=== PATIENT | female | born 1990 | race African-American/Black ===

== ENCOUNTER 2023-12-23 03:59 | Inpatient (IN) | payer MEDICAID, OTHER ==
[~2023-12-23] VITALS: Ht 177.8 cm; Wt 64.9 kg
[~2023-12-23 03:59] MED LIST: LEVO500T2 PO
[2023-12-23 07:40] LABS: BASOPHILS % 0.5 % (0.0-2.0); EOSINOPHILS % 0.1 % (0.0-5.0); HEMATOCRIT. 34.1 % (36.0-48.0); HEMOGLOBIN. 11.4 g/dL (12.0-16.0); LYMPHOCYTES % 14.9 % (20.0-50.0); MEAN CORPUSCULAR HEMOGLOBIN 30.9 pg (28.0-32.0); MEAN CORPUSCULAR HGB CONC 33.5 g/dL (31.0-37.0); MEAN CORPUSCULAR VOLUME 92.1 fL (81.0-99.0); MEAN PLATELET VOLUME 8.7 fl (7.4-10.4); MONOCYTES % 10.1 % (2.0-8.0); NEUTROPHILS % 74.4 % (40.0-76.0); PLATELET 284 x1000/uL (130-400); RED CELL DISTRIBUTION WIDTH 14.2 % (11.6-14.6); WHITE BLOOD COUNT 12.2 x1000/uL (4.5-11.0)
[2023-12-23 07:49] LABS: CARBON DIOXIDE 24 mEq/L (21-32); CHLORIDE 105 mEq/L (98-107); POTASSIUM 3.5 mEq/L (3.5-5.1); SODIUM 135 mEq/L (136-145)
[2023-12-23 07:50] LABS: CALCIUM 9.6 mg/dL (8.7-10.4)
[2023-12-23 07:55] LABS: CREATININE 0.7 mg/dL (0.6-1.0); GLUCOSE 78 mg/dL (70-105); UREA NITROGEN BLOOD 9 mg/dL (9-23)
[2023-12-23 07:57] LABS: ALANINE AMINOTRANSFERASE 10 IU/L (10-49); ALBUMIN 4.2 g/dL (3.2-4.8); ASPARTATE AMINOTRANSFERASE 28 IU/L (<34); BILIRUBIN DIRECT 0.3 mg/dL (<=3.0); BILIRUBIN TOTAL 0.8 mg/dL (0.1-1.0); HCG SCREEN NEGATIVE; PROTEIN TOTAL 6.9 g/dL (6.0-8.3)
[2023-12-23] MEDS: ONDANSETRON HCL 4MG/2ML INJ IV STA (08:05)
[2023-12-23] MEDS: MORPHINE SULFATE 4 MG/ML INJ (FOR IV/IM USE) IV STA (08:05)
[2023-12-23] MEDS: SODIUM CHLORIDE 0.9% 1,000 ML IV ONE (08:05)
[2023-12-23 08:08] LABS: PROTHROMBIN TIME 10.9 sec (9.6-11.0)
[2023-12-23 08:51] LABS: ETHANOL BLOOD < 10 mg/dL (<10); TROPONIN I HIGH SENSITIVITY < 4 ng/L (3.0-34)
[2023-12-23 09:40] VITALS: O2SAT 100
[2023-12-23] MEDS: MIDAZOLAM HCL 2 MG/2 ML VIAL IV ONE (09:40)
[2023-12-23] MEDS: LIDOCAINE HCL 1% 20ML VIAL (Pyxis) INJ INFIL ONE (10:10)
[2023-12-23] MEDS: FENTANYL CITRATE/PF 50MCG/ML 2ML VIAL IV ONE ×2 (10:26→11:30)
[2023-12-23] MEDS: KETOROLAC 30MG/ML VIAL IV ONE (13:55)
[2023-12-23] MEDS: MORPHINE SULFATE 4 MG/ML INJ (FOR IV/IM USE) IV ONE (13:55)
[2023-12-23] MEDS: ACETAMINOPHEN 1000MG/100ML 100 ML IV ONE (16:30)
[2023-12-23 20:00] VITALS: BP 133/59; PULSE 84; RESP 19; TEMP 98.6
[2023-12-23] MEDS ORDERED: NALOXONE HCL 0.4MG/ML VIAL IV PRN (22:00)
[2023-12-23] MEDS: HYDROCODONE/ACETAMINOPHEN 10/325MG TABLET PO PRN (23:11)
[2023-12-23 23:12] VITALS: BP 133/62; PULSE 84; RESP 19; TEMP 98.6
[2023-12-24] VITALS (7 sets, daily range): BP systolic 112–132; BP diastolic 62–79; PULSE 20–94; RESP 17–20; TEMP 97.5–98.1
[2023-12-24] MEDS ORDERED: DOCUSATE SODIUM 100MG CAPSULE PO PRN (08:30)
[2023-12-24] MEDS ORDERED: ACETAMINOPHEN 325MG TABLET PO PRN ×2 (08:30)
[2023-12-24] MEDS ORDERED: ONDANSETRON HCL 4MG/2ML INJ IV PRN (08:30)
[2023-12-24] MEDS ORDERED: CLONIDINE 0.1MG TABLET PO PRN (08:30)
[2023-12-24] MEDS ORDERED: IPRATROPIUM/ALBUTEROL 0.5-3(2.5)MG/3ML NEB HHN PRN (08:30)
[2023-12-24] MEDS: FAMOTIDINE 20MG TABLET PO SCH (09:24)
[2023-12-24 11:02] LABS: BG BASE EXCESS 0.8 mmol/L (-2.0-2.0); BG CARBOXYHEMOGLOBIN 0.5 % (0.5-1.5); BG DEOXYHEMOGLOBIN 1.8 % (0.0-5.0); BG FRACTION INSPIRED OXYGEN 21; BG HCO3 ACT 23.9 mmol/L (22.0-26.0); BG METHEMOGLOBIN 0.2 % (0.0-1.5); BG OXYGEN SATURATION 98.2 % (92.0-98.5); BG OXYHEMOGLOBIN 97.5 % (94.0-97.0); BG PCO2 33.4 mmHg (35.0-45.0); BG PH 7.473 (7.350-7.450); BG PO2 99.3 mmHg (75.0-100.0); BG SAMPLE SITE RIGHT RADIAL; BG TOTAL HEMOGLOBIN 12.1 g/dL (12.0-18.0); BG VENT MODE ROOM AIR
[2023-12-24 13:19] LABS: BASOPHILS % 0.4 % (0.0-2.0); EOSINOPHILS % 1.1 % (0.0-5.0); HEMATOCRIT. 33.8 % (36.0-48.0); HEMOGLOBIN. 11.6 g/dL (12.0-16.0); MEAN CORPUSCULAR HEMOGLOBIN 31.6 pg (28.0-32.0); MEAN CORPUSCULAR HGB CONC 34.3 g/dL (31.0-37.0); MEAN CORPUSCULAR VOLUME 92.2 fL (81.0-99.0); MEAN PLATELET VOLUME 8.8 fl (7.4-10.4); MONOCYTES % 9.7 % (2.0-8.0); NEUTROPHILS % 69.8 % (40.0-76.0); PLATELET 251 x1000/uL (130-400); RED BLOOD CELL COUNT 3.67 mill/uL (4.2-5.4); WHITE BLOOD COUNT 7.9 x1000/uL (4.5-11.0)
[2023-12-24 13:47] LABS: CHLORIDE 104 mEq/L (98-107); POTASSIUM 4.1 mEq/L (3.5-5.1); SODIUM 134 mEq/L (136-145)
[2023-12-24 13:48] LABS: CARBON DIOXIDE 26 mEq/L (21-32)
[2023-12-24 13:49] LABS: CALCIUM 9.7 mg/dL (8.7-10.4)
[2023-12-24 13:53] LABS: CREATININE 0.7 mg/dL (0.6-1.0); GLUCOSE 102 mg/dL (70-105); UREA NITROGEN BLOOD 8 mg/dL (9-23)
[2023-12-24] MEDS: PIPERACILLIN/TAZO 3.375G/50ML 50 ML IV SCH (14:18)
[2023-12-24 18:52] LABS: *AMPHETAMINES SCREEN URINE NEGATIVE (NEGATIVE); *BARBITURATES SCREEN URINE NEGATIVE (NEGATIVE); *BENZODIAZEPINES SCREEN URINE PRESUMPTIVE POSITIVE (NEGATIVE); *COCAINE SCREEN URINE NEGATIVE (NEGATIVE); METHADONE URINE SCREEN NEGATIVE (NEGATIVE); OPIATES URINE SCREEN PRESUMPTIVE POSITIVE (NEGATIVE)
[2023-12-24 18:53] LABS: CANNABINOID URINE SCREEN PRESUMPTIVE POSITIVE (NEGATIVE); ECSTASY MDMA SCREEN URINE NEGATIVE (NEGATIVE); PHENCYCLIDINE URINE SCREEN NEGATIVE (NEGATIVE)
[2023-12-24] MEDS ORDERED: CLOTRIMAZOLE 1% CREAM 15GM TOP ONE (20:30)
[2023-12-24] MEDS ORDERED: ALBUTEROL 6.7GM HFA INHALER ORI PRN (22:45)
[2023-12-24] MEDS: CLOTRIMAZOLE 1% CREAM 15GM TOP SCH (22:51)
[2023-12-25] VITALS: BP 111/60; PULSE 73; RESP 20; TEMP 97.8
[2023-12-25 02:10] LABS: CLARITY URINE CLEAR (CLEAR); COLOR URINE YELLOW (YELLOW); GLUCOSE URINE NEGATIVE (NEGATIVE); KETONES URINE NEGATIVE (NEGATIVE); LEUKOCYTE ESTERASE URINE NEGATIVE (NEGATIVE); NITRITE URINE NEGATIVE (NEGATIVE); OCCULT BLOOD URINE NEGATIVE (NEGATIVE); PROTEIN URINE NEGATIVE (NEGATIVE); SPECIFIC GRAVITY URINE 1.011 (1.005-1.030)
[2023-12-25 04:00] VITALS: BP 110/68; PULSE 69; RESP 20; TEMP 96.8
[2023-12-25 07:45] LABS: CHLORIDE 102 mEq/L (98-107); POTASSIUM 4.2 mEq/L (3.5-5.1); SODIUM 136 mEq/L (136-145)
[2023-12-25 07:46] LABS: CALCIUM 10.1 mg/dL (8.7-10.4); CARBON DIOXIDE 28 mEq/L (21-32)
[2023-12-25 07:51] LABS: CREATININE 0.8 mg/dL (0.6-1.0); GLUCOSE 87 mg/dL (70-105); UREA NITROGEN BLOOD 7 mg/dL (9-23)
[2023-12-25 08:01] LABS: BASOPHILS % 0.7 % (0.0-2.0); EOSINOPHILS % 2.4 % (0.0-5.0); HEMATOCRIT. 36.1 % (36.0-48.0); HEMOGLOBIN. 12.2 g/dL (12.0-16.0); LYMPHOCYTES % 19.4 % (20.0-50.0); MEAN CORPUSCULAR HEMOGLOBIN 31.4 pg (28.0-32.0); MEAN CORPUSCULAR HGB CONC 33.7 g/dL (31.0-37.0); MEAN CORPUSCULAR VOLUME 93.2 fL (81.0-99.0); MEAN PLATELET VOLUME 9.1 fl (7.4-10.4); MONOCYTES % 10.6 % (2.0-8.0); NEUTROPHILS % 66.9 % (40.0-76.0); PLATELET 259 x1000/uL (130-400); RED BLOOD CELL COUNT 3.87 mill/uL (4.2-5.4); RED CELL DISTRIBUTION WIDTH 14.1 % (11.6-14.6); WHITE BLOOD COUNT 8.2 x1000/uL (4.5-11.0)
[2023-12-25 08:31] VITALS: BP 116/52; PULSE 81; RESP 16; TEMP 97
[2023-12-25 12:00] VITALS: BP 112/60; PULSE 76; RESP 16; TEMP 97.5
[2023-12-25 16:00] VITALS: BP 135/67; PULSE 94; RESP 18; TEMP 97.9
[2023-12-25 20:00] VITALS: BP 128/52; PULSE 99; RESP 18; TEMP 98.7
[2023-12-26] VITALS: BP 143/68; PULSE 91; RESP 18; TEMP 98.4
[2023-12-26] MEDS: HYDROCODONE/ACETAMINOPHEN 10/325MG TABLET PO PRN (00:49)
[2023-12-26 04:00] VITALS: BP 138/61; PULSE 88; RESP 20; TEMP 97.8
[2023-12-26 08:00] VITALS: BP 92/68; PULSE 80; RESP 18; TEMP 98
[2023-12-26 12:00] VITALS: BP 122/80; PULSE 87; RESP 18; TEMP 98
[2023-12-26] MEDS: KETOROLAC 30MG/ML VIAL IV PRN (13:38)
[2023-12-26 16:00] VITALS: BP 102/65; PULSE 80; RESP 18; TEMP 98
[2023-12-26 20:00] VITALS: BP 118/67; PULSE 87; RESP 18; TEMP 98.2
[2023-12-27] VITALS: BP 117/69; PULSE 75; RESP 17; TEMP 97.1
[2023-12-27 04:00] VITALS: BP 99/55; PULSE 86; RESP 17; TEMP 98.1
[2023-12-27 08:00] VITALS: BP 109/65; PULSE 82; RESP 18; TEMP 97.7
[2023-12-27 12:00] VITALS: BP 120/60; PULSE 86; RESP 18; TEMP 97.7
[2023-12-27 16:00] VITALS: BP 104/57; PULSE 79; RESP 18; TEMP 97.8
[2023-12-27 20:00] VITALS: BP 111/63; PULSE 90; RESP 16; TEMP 97.5
[2023-12-28] VITALS: BP 100/57; PULSE 83; RESP 18; TEMP 96.4
[2023-12-28 04:00] VITALS: BP 100/61; PULSE 74; RESP 18; TEMP 97.5
[2023-12-28 08:00] VITALS: BP 104/59; PULSE 78; RESP 18; TEMP 97.6
[2023-12-28 09:56] LABS: HEMATOCRIT. 37.4 % (36.0-48.0); HEMOGLOBIN. 12.6 g/dL (12.0-16.0); LYMPHOCYTES % 21.4 % (20.0-50.0); MEAN CORPUSCULAR HEMOGLOBIN 31.6 pg (28.0-32.0); MEAN CORPUSCULAR HGB CONC 33.8 g/dL (31.0-37.0); MEAN CORPUSCULAR VOLUME 93.3 fL (81.0-99.0); MEAN PLATELET VOLUME 8.4 fl (7.4-10.4); MONOCYTES % 12.5 % (2.0-8.0); NEUTROPHILS % 60.1 % (40.0-76.0); PLATELET 315 x1000/uL (130-400); RED CELL DISTRIBUTION WIDTH 14.1 % (11.6-14.6); WHITE BLOOD COUNT 5.7 x1000/uL (4.5-11.0)
[2023-12-28 11:00] LABS: CARBON DIOXIDE 26 mEq/L (21-32); CHLORIDE 102 mEq/L (98-107); POTASSIUM 4.7 mEq/L (3.5-5.1); SODIUM 134 mEq/L (136-145)
[2023-12-28 11:01] LABS: CALCIUM 10.3 mg/dL (8.7-10.4)
[2023-12-28 11:06] LABS: CREATININE 0.9 mg/dL (0.6-1.0); GLUCOSE 98 mg/dL (70-105)
[2023-12-28 11:07] LABS: UREA NITROGEN BLOOD 16 mg/dL (9-23)
[2023-12-28 12:00] VITALS: BP 116/80; PULSE 101; RESP 18; TEMP 97.8
[2023-12-28 16:00] VITALS: BP 110/80; PULSE 99; RESP 16; TEMP 98
[2023-12-28 21:21] VITALS: PULSE 91; RESP 20; TEMP 97.9
[2023-12-28] MEDS: KETOROLAC 30MG/ML VIAL IV PRN (22:22)
[2023-12-29] VITALS: BP 115/85; PULSE 85; RESP 20; TEMP 98.3
[2023-12-29 04:00] VITALS: BP 120/70; PULSE 78; RESP 20; TEMP 98
[2023-12-29 05:46] VITALS: BP 107/50
[2023-12-29 06:59] LABS: CARBON DIOXIDE 26 mEq/L (21-32); CHLORIDE 104 mEq/L (98-107); POTASSIUM 4.2 mEq/L (3.5-5.1); SODIUM 135 mEq/L (136-145)
[2023-12-29 07:00] LABS: CALCIUM 9.6 mg/dL (8.7-10.4)
[2023-12-29 07:05] LABS: CREATININE 0.8 mg/dL (0.6-1.0); GLUCOSE 82 mg/dL (70-105); UREA NITROGEN BLOOD 17 mg/dL (9-23)
[2023-12-29 07:27] LABS: BASOPHILS % 0.9 % (0.0-2.0); EOSINOPHILS % 5.5 % (0.0-5.0); HEMOGLOBIN. 11.3 g/dL (12.0-16.0); LYMPHOCYTES % 22.4 % (20.0-50.0); MEAN CORPUSCULAR HEMOGLOBIN 31.4 pg (28.0-32.0); MEAN CORPUSCULAR HGB CONC 34.2 g/dL (31.0-37.0); MEAN CORPUSCULAR VOLUME 91.9 fL (81.0-99.0); MEAN PLATELET VOLUME 8.6 fl (7.4-10.4); MONOCYTES % 14.5 % (2.0-8.0); NEUTROPHILS % 56.7 % (40.0-76.0); PLATELET 278 x1000/uL (130-400); RED BLOOD CELL COUNT 3.59 mill/uL (4.2-5.4); RED CELL DISTRIBUTION WIDTH 14.3 % (11.6-14.6)
[2023-12-29 08:00] VITALS: PULSE 75; RESP 18; TEMP 97.7
== END 2023-12-29 16:00 | disposition home or self-care (01) | DRG 135 ==
LOC: ER 03:59 → EDBEDREQTM 12:15 → EDBEDREQ 12:15 → 7EST 20:38
PROVIDERS: ADMIT Internal Medicine; ATTEND Internal Medicine
PROC: 0W9B30Z Drainage of Left Pleural Cavity with Drainage Device, Percutaneous Approach (ICD-10-PCS; principal; 2023-12-23)
DX: S27.2XXA Traumatic hemopneumothorax, initial encounter (principal); S27.331A Laceration of lung, unilateral, initial encounter; S27.321A Contusion of lung, unilateral, initial encounter; E87.1 Hypo-osmolality and hyponatremia; S22.42XA Multiple fractures of ribs, left side, initial encounter for closed fracture; J45.909 Unspecified asthma, uncomplicated; D64.9 Anemia, unspecified; F19.10 Other psychoactive substance abuse, uncomplicated; J42 Unspecified chronic bronchitis; J98.11 Atelectasis; K80.20 Calculus of gallbladder without cholecystitis without obstruction; Z88.8 Allergy status to other drugs, medicaments and biological substances; W18.30XA Fall on same level, unspecified, initial encounter; Y93.83 Activity, rough housing and horseplay; Y92.89 Other specified places as the place of occurrence of the external cause; Y99.8 Other external cause status
CPT/HCPCS: 36415; 36600; 71045; 71100; 71250; 80048; 80076; 80305; 80320; 81003; 82375; 82805; 84145; 84484; 84703; 85025; 86850; 86900; 93005; 99285; J1885; J2250; J2270; J2405; J2543; J3010; J3490; J7030; G0480; J0131